=== PATIENT | female | born 1970 | race Caucasian/White ===

== ENCOUNTER 2018-02-23 19:33 | Emergency (ER) | payer MEDICARE, OTHER ==
[~2018-02-23] VITALS: Ht 162.6 cm; Wt 68.0 kg
[2018-02-23 19:35] VITALS: BP_SYST 168
[2018-02-23] MEDS ORDERED: BACITRACIN 1 GM OINT TP ONE (20:00)
[2018-02-23] MEDS ORDERED: LORazepam 1 MG TABLET PO ONE (20:00)
[2018-02-23] MEDS ORDERED: IBUPROFEN 600 MG TABLET PO ONE (20:00)
[2018-02-23 21:32] VITALS: BP_SYST 155
== END 2018-02-23 21:32 | disposition home or self-care (01) ==
LOC: SED 19:33
DX: S02.2XXA Fracture of nasal bones, initial encounter for closed fracture (principal); S01.511A Laceration without foreign body of lip, initial encounter; S80.02XA Contusion of left knee, initial encounter; W01.0XXA Fall on same level from slipping, tripping and stumbling without subsequent striking against object, initial encounter; Y93.89 Activity, other specified; Y92.481 Parking lot as the place of occurrence of the external cause; Y99.8 Other external cause status
CPT/HCPCS: 70486-TC; 73564; 81025; 99284